=== PATIENT | male | born 1995 | race Caucasian/White ===

== ENCOUNTER 2016-10-07 23:49 | Emergency (ER) | payer BC ==
[2016-10-07 23:59] VITALS: BP 126/63; PULSE 109; RESP 20; TEMP 101.5
[2016-10-08] MEDS ORDERED: ACETAMINOPHEN TAB 500 MG TAB PO STA (00:27)
[2016-10-08] MEDS ORDERED: IBUPROFEN 600 MG TAB PO STA (00:27)
[2016-10-08] MEDS ORDERED: AMOXIC-POT CLAV 875MG STARTER 2 EACH TABLET PO STA (00:27)
[2016-10-08] MEDS ORDERED: OFLOXACIN 0.3% OPHTH DROPS 5 ML BOTTLE BOTH EARS STA (00:31)
--- NOTE | 2016-10-08 00:32 | ED ---
ENT HPI - General Chief complaint: ENT Stated complaint: ear ache Time Seen by Provider: 10/08/16 00:21 Source: patient, family Mode of arrival: ambulatory Limitations: no limitations - History of Present Illness Initial comments: 21-year-old male patient presents to emergency department today with complaints of sore throat and bilateral ear pain. Patient states his been sick with cold- like symptoms for the last week. Patient states at work today both ear started to hurt, the left ear started to drain, and his throat became sore. Patient reports fever and chills. Patient did have ear infections with myringotomy tube placement as a child but has had no problems since then. Patient denies any sputum production, shortness of breath, chest pain, or back pain. Patient denies any difficulty with hearing. - Related Data Previous Rx's Medication Instructions Recorded Amoxicillin/Potassium Clav 1 tab PO Q12HR #20 tab 10/08/16 [Augmentin 875-125 Tablet] Ibuprofen [Motrin] 600 mg PO Q8HR PRN #30 tab 10/08/16 Allergies Allergy/AdvReac Type Severity Reaction Status Date / Time No Known Allergies Allergy Verified 10/07/16 23:59 Review of Systems ROS Statement: Those systems with pertinent positive or pertinent negative responses have been documented in the HPI. ROS Other: All systems not noted in ROS Statement are negative. Past Medical History Past Medical History: No Reported History History of Any Multi-Drug Resistant Organisms: None Reported Past Surgical History: No Surgical Hx Reported Past Psychological History: No Psychological Hx Reported Smoking Status: Never smoker Past Alcohol Use History: None Reported Past Drug Use History: None Reported General Exam Limitations: no limitations General appearance: alert, in no apparent distress Eye exam: Present: normal appearance, PERRL, EOMI. Absent: scleral icterus, conjunctival injection, periorbital swelling ENT exam: Present: normal exam, mucous membranes moist. Absent: normal oropharynx (Pharyngeal erythema), TM's normal bilaterally (Bilateral tympanic membranes bulging and erythematous. Bilateral external auditory canal erythema. Brownish red drainage noted from the left ear canal.) Respiratory exam: Present: normal lung sounds bilaterally. Absent: respiratory distress, wheezes, rales, rhonchi, stridor Cardiovascular Exam: Present: normal rhythm, tachycardia, normal heart sounds. Absent: systolic murmur, diastolic murmur, rubs, gallop, clicks GI/Abdominal exam: Present: soft, normal bowel sounds. Absent: distended, tenderness, guarding, rebound, rigid Neurological exam: Present: alert, oriented X3, CN II-XII intact Psychiatric exam: Present: normal affect, normal mood Skin exam: Present: warm, dry, intact, normal color. Absent: rash Course Vital Signs 10/07/16 23:57 Temperature 101.5 F H Pulse Rate 109 H Respiratory 20 Rate Blood Pressure 126/63 O2 Sat by Pulse 97 Oximetry Medical Decision Making - Medical Decision Making 21-year-old male patient presented for evaluation of sore throat and bilateral ear pain. Physical exam did reveal bulging and erythematous bilateral tympanic membranes with some evidence of otitis externa. Patient will be given prescription for Augmentin as well as ofloxacin eardrops as an outpatient. Instructed to take Tylenol and ibuprofen alternating for pain and fever control. Patient instructed to follow up with ENT if symptoms started to improve. Patient started to return for any new, worsening, or concerning symptoms. Patient verbalizes understanding and agrees with this plan. Disposition Clinical Impression: Otitis media, unspecified, bilateral, Otitis externa of both ears, Pharyngitis Disposition: HOME SELF-CARE Condition: Stable Instructions: Earache (ED), Otitis Media (ED), Otitis Externa (ED) Additional Instructions: Complete antibiotic prescription and full. Alternate Tylenol Motrin for pain and fever control. Return for any worsening, new, or concerning symptoms. If symptoms aren't improving 1-2 days follow-up with ENT. Prescriptions: Amoxicillin/Potassium Clav [Augmentin 875-125 Tablet] 1 tab PO Q12HR #20 tab Ibuprofen [Motrin] 600 mg PO Q8HR PRN #30 tab PRN Reason: Pain Referrals: None,Stated [Primary Care Provider] - 1-2 days Jose Luis Jo MD [STAFF PHYSICIAN] - 1-2 days Time of Disposition: 00:32
== END 2016-10-08 01:01 | disposition home or self-care (01) ==
LOC: EC 23:49
DX: H66.93 Otitis media, unspecified, bilateral (principal); H60.93 Unspecified otitis externa, bilateral; J02.9 Acute pharyngitis, unspecified
CPT/HCPCS: 99283